=== PATIENT | female | born 1955 | race Caucasian/White ===

== ENCOUNTER 2024-07-15 13:00 | Observation (INO) | payer SELFPAY ==
[2024-07-15] MEDS ORDERED: DUONEB 0.5-3 MG/3 ml Neb IH ONE (13:43)
[2024-07-15] MEDS: DUONEB 0.5-3 MG/3 ml Neb IH ONE (13:47)
--- NOTE | 2024-07-15 14:08 | ERPHSYRPT ---
- History of Present Illness Time Seen by Provider: 07/15/24 13:15 Source: patient Exam Limitations: no limitations Patient Subjective Stated Complaint: C/O Cough and SOB since Sunday that is becoming worse. Denies fever. States cough was dry and non-productive until today. Now it is productive with yellow sputum. Triage Nursing Assessment: Patient went to [facility] and was directed to the ER. She is alert and oriented. Patient is noted to be SOB with exertion. She has a moist cough; non-productive during assessment. Taking deep breaths causes an increase in coughing. 02 sats 89-90% on room air upon her arrival; started on 02 @ 2L per N/C. Expiratory rhochi present throughout all lung reynoso. No edema. Physician History: Patient is a 68-year-old female current smoker presents to our emergency department as a referral from [facility] For evaluation of cough and shortness of breath x 4 days. Upon arrival to our ED patient's O2 sat was 89 to 90% on room air. Patient normally does not require oxygen. Patient currently on 2 L nasal cannula. Patient states symptoms of gotten progressively worse over the past 4 days. Cough is productive of a yellow sputum. Patient voices no other complaints or concerns at this time. Portions of this note were created with voice recognition technology. There may be grammatical, spelling, punctuation or sound alike errors Timing/Duration: day(s) Activities at Onset: activity (4 days) Severity of Dyspnea-Max: moderate Severity of Dyspnea-Current: mild Possible Cause: no prior episodes Modifying Factors: Improves With: activity Associated Symptoms: cough Allergies/Adverse Reactions: No Known Drug Allergies Allergy (Verified 07/15/24 13:09) Home Medications: No Reportable Medications [No Reported Medications] 07/15/24 [History] Hx Tetanus, Diphtheria Vaccination/Date Given: Yes Hx Influenza Vaccination/Date Given: No Immunizations Up to Date: Yes Travel Risk - International Travel Have you traveled outside of the country in past 3 weeks: No - Emerging Infectious Disease Are you exhibiting symptoms associated with any current EIDs: Yes Symptoms: Cough: New Onset, Shortness of Breath - Review of Systems Constitutional: No Symptoms, No Fever, No Chills Eyes: No Symptoms Ears, Nose, & Throat: No Symptoms Respiratory: No Symptoms, No Cough, No Dyspnea Cardiac: No Symptoms, No Chest Pain, No Edema, No Syncope Abdominal/Gastrointestinal: No Symptoms, No Abdominal Pain, No Nausea, No Vomiting, No Diarrhea Genitourinary Symptoms: No Symptoms, No Dysuria Musculoskeletal: No Symptoms, No Back Pain, No Neck Pain Skin: No Symptoms, No Rash Neurological: No Symptoms, No Dizziness, No Focal Weakness, No Sensory Changes Psychological: No Symptoms Endocrine: No Symptoms Hematologic/Lymphatic: No Symptoms Immunological/Allergic: No Symptoms All Other Systems: Reviewed and Negative - Past Medical History Pertinent Past Medical History: No - Past Surgical History Past Surgical History: No - Social History Smoking Status: Current every day smoker How long have you smoked: 50 years Exposure to second hand smoke: No Drug Use: none - Social Determinants of Health Will the patient participate in the screening: Yes Do you worry about a steady place to live?: No Do you have any problems with any of the following?: No known problems In the past 12 months,have you had to go without utilities?: No Transportation Issues: No Has anyone in your support network made you feel unsafe?: No Have you or anyone in your house had to go w/o enough food: No - Nursing Vital Signs Nursing Vital Signs: Initial Vital Signs Pulse Rate 91 H 07/15/24 13:09 Respiratory Rate 18 07/15/24 13:09 Blood Pressure 220/135 07/15/24 13:09 O2 Sat by Pulse Oximetry 96 07/15/24 13:09 Pain Scale Pain Intensity 0 - Physical Exam General Appearance: no apparent distress, alert Eye Exam: PERRL/EOMI Ears, Nose, Throat Exam: hearing grossly normal, normal ENT inspection, normal pharynx Neck Exam: normal inspection, supple Respiratory Exam: diminished breath sounds, rhonchi, wheezing Cardiovascular/Chest Exam: normal heart sounds, regular rate/rhythm Abdominal/Gastrointestinal Exam: soft, No tenderness, No distention, No mass Extremity Exam: non-tender, normal range of motion, normal inspection, no calf tenderness, no pedal edema Neurologic Exam: alert, oriented x 3, cooperative, health service coordinator II-XII nml as tested, sensation nml, No motor deficits Skin Exam: normal color, warm, No dry Lymphatic Exam: No adenopathy SpO2 Interpretation: normal SpO2: 98 O2 Delivery: Room Air - Course Nursing assessment & vital signs reviewed: Yes EKG Interpreted by Me: RATE (97), Sinus Rhythm, NORMAL AXIS, NORMAL INTERVALS, NORMAL QRS - Radiology Exams Chest X-ray Interpretation: Teleradiologist Report (Nonacute chest with chronic features) - CT Exams Chest CT Interpretation: Tele-radiologist Report (Emphysema, lung nodule, hepatic cyst versus hemangioma left renal cyst) Ordered Tests: Active Orders 24 hr Category Date Time Status Record Retrieval Specialist STAT Care 07/15/24 13:57 Active EKG-ER Only STAT Care 07/15/24 13:56 Active IV Insertion STAT Care 07/15/24 13:56 Active Oxygen-ED Only Nasal Cannula 2 lpm Care 07/15/24 14:22 Active Pulse Oximetry (ED) STAT Care 07/15/24 13:56 Active CHEST 1 VIEW (PORTABLE) Stat Exams 07/15/24 13:57 Completed CHEST WITH CONTRAST [CT] Stat Exams 07/15/24 15:00 Completed BLOOD CULTURE Stat Lab 07/15/24 14:26 Received CBC W DIFF Stat Lab 07/15/24 13:45 Completed CMP Stat Lab 07/15/24 13:45 Completed D-DIMER QUANTITATIVE Stat Lab 07/15/24 13:45 Completed Lactic Acid Stat Lab 07/15/24 13:56 Completed Respiratory Therapy Assessment DAILY RT 07/15/24 13:46 Completed Transfer Order Routine Transfer 07/15/24 Ordered Medication Summary Generic Name Dose Route Start Last Admin Trade Name Freq PRN Reason Stop Dose Admin Ceftriaxone Sodium 2 gm in 100 mls @ 200 mls/hr 07/15/24 17:04 Rocephin 2 Gm/100 Ml Nacl IV 07/15/24 17:33 STAT ONE Azithromycin 500 mg/ Sodium 250 mls @ 250 mls/hr 07/15/24 17:04 Chloride IV 07/15/24 18:03 STAT STA Discontinued Medications Generic Name Dose Route Start Last Admin Trade Name Freq PRN Reason Stop Dose Admin Albuterol/Ipratropium Confirm 07/15/24 13:43 Ipratropium/Albuterol Sulfate 3 Ml Ampul.Neb Administered 07/15/24 13:44 Dose 3 ml IH .STK-MED ONE Albuterol/Ipratropium 3 ml 07/15/24 13:46 07/15/24 13:47 Ipratropium/Albuterol Sulfate 3 Ml Ampul.Neb IH 07/15/24 13:47 3 ml STAT ONE Administration Methylprednisolone Sodium 0 mg 07/15/24 14:11 07/15/24 14:14 Succinate 125 mg/ Sterile IV 07/15/24 14:12 125 mg Water 2 ml STAT ONE Administration Methylprednisolone Sodium Succinate Confirm 07/15/24 14:13 Methylprednis Sod Succ 125 Mg/2 Ml Vial Administered 07/15/24 14:14 Dose 125 mg .ROUTE .STK-MED ONE Metoprolol Tartrate 25 mg 07/15/24 15:08 07/15/24 15:15 Metoprolol Tartrate 25 Mg Tab PO 07/15/24 15:09 25 mg STAT ONE Administration Metoprolol Tartrate Confirm 07/15/24 15:15 Metoprolol Tartrate 25 Mg Tab Administered 07/15/24 15:16 Dose 25 mg .ROUTE .STK-MED ONE Sterile Water Confirm 07/15/24 14:13 Water For Injection,Sterile 10 Ml Vial Administered 07/15/24 14:14 Dose 10 ml IJ .STK-MED ONE Lab/Rad Data: Laboratory Result Diagrams 07/15/24 13:45 07/15/24 13:45 Laboratory Results 07/15/24 07/15/24 07/15/24 Range/Units 14:30 13:56 13:45 WBC (3.98-10.04) x10^3/uL RBC (3.93-5.22) x10^6/uL Hgb (11.2-15.7) g/dL Hct (34.1-44.9) % MCV (79.4-94.8) fL MCH (25.6-32.2) pg MCHC (32.2-35.5) g/dL RDW (11.7-14.4) % Plt Count (182-369) x10^3/uL MPV (9.4-12.3) fL Gran % (34.0-71.1) % Immature Gran % (Auto) (0.001-0.429) % Nucleat RBC Rel Count (0.00-0.2) % Eos # (Auto) (0.04-0.36) x10^3/uL Immature Gran # (Auto) (0.001-0.031) x10^3u/L Absolute Lymphs (auto) (1.18-3.74) x10^3/uL Absolute Monos (auto) (0.24-0.86) x10^3/uL Absolute Nucleated RBC (0.00-0.012) x10^3u/L Lymphocytes % (19.3-51.7) % Monocytes % (4.7-12.5) % Eosinophils % (0.7-5.8) % Basophils % (0.1-1.2) % Absolute Granulocytes (1.56-6.13) x10^3/uL Basophils # (0.01-0.08) x10^3/uL D-Dimer 0.87 H* (0.0-0.50) mg/L Sodium (135-145) mmol/L Potassium (3.5-5.1) mmol/L Chloride (98-107) mmol/L Carbon Dioxide (22-30) mmol/L Anion Gap (5-15) MEQ/L BUN (7-17) mg/dL Creatinine (0.52-1.04) mg/dL Estimated GFR ML/MIN Glucose (74-106) mg/dL Lactic Acid 1.2 (0.4-2.0) Calcium (8.4-10.2) mg/dL Total Bilirubin (0.2-1.3) mg/dL AST (14-36) U/L ALT (0-35) U/L Alkaline Phosphatase (38-126) U/L Serum Total Protein (6.3-8.2) g/dL Albumin (3.5-5.0) g/dL Influenza Type A Ag NEGATIVE (NEGATIVE) Influenza Type B Ag NEGATIVE (NEGATIVE) RSV (PCR) NEGATIVE (NEGATIVE) SARS-CoV-2 (PCR) NEGATIVE (NEGATIVE) 07/15/24 07/15/24 Range/Units 13:45 13:45 WBC 9.8 (3.98-10.04) x10^3/uL RBC 5.10 (3.93-5.22) x10^6/uL Hgb 15.0 (11.2-15.7) g/dL Hct 45.6 H (34.1-44.9) % MCV 89.4 (79.4-94.8) fL MCH 29.4 (25.6-32.2) pg MCHC 32.9 (32.2-35.5) g/dL RDW 14.0 (11.7-14.4) % Plt Count 259 (182-369) x10^3/uL MPV 10.0 (9.4-12.3) fL Gran % 73.2 H (34.0-71.1) % Immature Gran % (Auto) 0.5 H (0.001-0.429) % Nucleat RBC Rel Count 0.0 (0.00-0.2) % Eos # (Auto) 0.12 (0.04-0.36) x10^3/uL Immature Gran # (Auto) 0.05 H (0.001-0.031) x10^3u/L Absolute Lymphs (auto) 1.83 (1.18-3.74) x10^3/uL Absolute Monos (auto) 0.57 (0.24-0.86) x10^3/uL Absolute Nucleated RBC 0.00 (0.00-0.012) x10^3u/L Lymphocytes % 18.8 L (19.3-51.7) % Monocytes % 5.8 (4.7-12.5) % Eosinophils % 1.2 (0.7-5.8) % Basophils % 0.5 (0.1-1.2) % Absolute Granulocytes 7.14 H (1.56-6.13) x10^3/uL Basophils # 0.05 (0.01-0.08) x10^3/uL D-Dimer (0.0-0.50) mg/L Sodium 141 (135-145) mmol/L Potassium 4.4 (3.5-5.1) mmol/L Chloride 105 (98-107) mmol/L Carbon Dioxide 23 (22-30) mmol/L Anion Gap 16.4 H (5-15) MEQ/L BUN 23 H (7-17) mg/dL Creatinine 0.74 (0.52-1.04) mg/dL Estimated GFR 87.5 ML/MIN Glucose 100 (74-106) mg/dL Lactic Acid (0.4-2.0) Calcium 9.4 (8.4-10.2) mg/dL Total Bilirubin 0.70 (0.2-1.3) mg/dL AST 32 (14-36) U/L ALT 17 (0-35) U/L Alkaline Phosphatase 123 (38-126) U/L Serum Total Protein 7.9 (6.3-8.2) g/dL Albumin 4.6 (3.5-5.0) g/dL Influenza Type A Ag (NEGATIVE) Influenza Type B Ag (NEGATIVE) RSV (PCR) (NEGATIVE) SARS-CoV-2 (PCR) (NEGATIVE) - Progress Progress: improved Air Movement: good Progress Note: Patient accepted by hospitalist Dr. Lyon at 5:10pm 07/15/24 17:11 68-year-old female 1 pack/day smoker with no primary care follow-up presents to our ED for evaluation of shortness of breath. Patient was hypoxic upon arrival. D-dimer positive. CTA chest significant for emphysema. No PE. Patient received a breathing treatment Solu-Medrol antibiotics. Breathing significantly improved however patient still hypoxic on room air. Troponin negative. Lactic acid 1.2. Influenza RSV COVID-negative. Upon arrival to our ED patient's blood pressure was 200 systolic. We administered 25 mg metoprolol. Blood pressure improved to 185 systolic. Patient will require hospitalization for further evaluation and treatment. Plan of care discussed with patient. She agreed to admission to [facility] for further evaluation and treatment. Portions of this note were created with voice recognition technology. There may be grammatical, spelling, punctuation or sound alike errors Complexity of problem addressed is moderate acute complicated. No critical care time. Complex of data reviewed analyzes extensive. Test ordered test reviewed results analyzed and correlated clinically with history and physical exam. Risk of complication and or risk of morbidity/mortality of patient management is high. Patient requires hospitalization for further evaluation and treatment. Vital stable. Time spent admit patient approximately 15 minutes. Plan of care established for shared decision making. No social determinants of health present to impede follow-up. Portions of this note were created with voice recognition technology. There may be grammatical, spelling, punctuation or sound alike errors 07/15/24 17:25 Blood Culture(s) Obtained: Yes Antibiotics given: Yes Discussed with : Diana Counseled pt/family regarding: lab results, diagnosis - Departure Departure Disposition: Observation Clinical Impression: Hypoxia, Shortness of breath, Emphysema lung, Lung nodule, Hepatic cyst, Renal cyst, left, COPD exacerbation, Hypertension Condition: Stable Critical Care Time: No Referrals: GAIL GONZALEZ MD [Primary Care Provider, [facility]] - Follow up/PCP as directed Instructions: Chronic Obstructive Pulmonary Disease
[2024-07-15] MEDS ORDERED: solu-MEDROL ONE ×2 (14:13→21:35)
[2024-07-15] MEDS ORDERED: Sterile H2O 10 ml IJ ONE ×2 (14:13→21:36)
[2024-07-15] MEDS: solu-MEDROL 125 MG, Sterile H2O 10 ml 2 ML IV ONE (14:14)
[2024-07-15 14:16] LABS: Absolute Neutrophil Ct (ANC) 7.14 x10^3/uL (1.56-6.13); BASOPHIL % 0.5 % (0.1-1.2); Basophil (Absolute #) 0.05 x10^3/uL (0.01-0.08); Eosinophil % 1.2 % (0.7-5.8); Eosinophil (Absolute #) 0.12 x10^3/uL (0.04-0.36); Hematocrit 45.6 % (34.1-44.9); IMMATURE GRAN # 0.05 x10^3u/L (0.001-0.031); IMMATURE GRAN % 0.5 % (0.001-0.429); Lymphocyte (Absolute #) 1.83 x10^3/uL (1.18-3.74); Lymphocytes % 18.8 % (19.3-51.7); Mean Cell Volume 89.4 fL (79.4-94.8); Mean Corpuscular Hemoglobin 29.4 pg (25.6-32.2); Mean Corpuscular Hgb Concent. 32.9 g/dL (32.2-35.5); Monocyte (Absolute #) 0.57 x10^3/uL (0.24-0.86); Monocytes % 5.8 % (4.7-12.5); Neutrophil % 73.2 % (34.0-71.1); Platelet Count 259 x10^3/uL (182-369); White Blood Count 9.8 x10^3/uL (3.98-10.04)
--- NOTE | 2024-07-15 14:19 | XRAY ---
Indication: Short of breath. Comparison: May 05, 2019 Portable chest again hyperinflated with minimal bibasilar fibrosis/scarring. No focal infiltrate, consolidation, or large effusion. Heart not enlarged. Bony thorax intact again with osteopenia and minimal degenerative changes. Impression: Continued nonacute chest with chronic features.
[2024-07-15 14:32] LABS: ALBUMIN 4.6 g/dL (3.5-5.0); ANION GAP 16.4 MEQ/L (5-15); BILIRUBIN,TOTAL 0.7 mg/dL (0.2-1.3); Calcium 9.4 mg/dL (8.4-10.2); Creatinine 1 0.74 mg/dL (0.52-1.04); EST GLOMERULAR FILTRATION RATE 87.5 ML/MIN; Potassium 4.4 mmol/L (3.5-5.1); Total Protein 7.9 g/dL (6.3-8.2)
[2024-07-15 15:08] LABS: INFLUENZA A NEGATIVE (NEGATIVE); INFLUENZA B NEGATIVE (NEGATIVE); RESPIRATORY SYNCTIAL VIRUS NEGATIVE (NEGATIVE); SARS-CoV-2 Xpert Express NEGATIVE (NEGATIVE)
[2024-07-15] MEDS: Lopressor 25MG Tab PO ONE (15:15)
[2024-07-15] MEDS ORDERED: Lopressor 25MG Tab ONE (15:15)
--- NOTE | 2024-07-15 16:52 | XRAY ---
Indication: Short of breath. Positive d-dimer. Multiple contiguous axial images obtained through the chest using 80 cc Isovue 370 contrast and PE protocol. Comparison: None Good opacification pulmonary arteries to include the lobar and segmental branches. No pulmonary embolus. Heart not enlarged. Aorta demonstrates minimal scattered calcifications without aneurysm/dissection. No pathologic mediastinal/hilar lymphadenopathy. Lungs demonstrates pulmonary emphysema. Left upper lobe demonstrates 7 mm indeterminate noncalcified nodule. No infiltrate or effusion. Bony thorax intact with osteopenia. Limited upper abdomen demonstrates 5 mm hepatic cyst versus hemangioma. Also 1 cm left upper renal cyst. Impression: 1. Negative pulmonary embolus. No acute cardiopulmonary abnormalities. 2. Chronic findings including pulmonary emphysema, 7 mm indeterminate left upper lobe noncalcified nodule, osteopenia, tiny hepatic cyst/hemangioma, and small left renal cyst.
[2024-07-15] MEDS ORDERED: ROCEPHIN 2 GM/100 ML NACL 2 GM/100 ML IVPB IV ONE (17:26)
[2024-07-15] MEDS: ROCEPHIN 2 GM/100 ML NACL 2 GM/100 ML IVPB IV ONE (17:28)
[2024-07-15] MEDS: ZITHROMAX IV*** 500 MG in Sodium Chloride 0.9% 250 ML 250 ML IV STA (18:51)
[2024-07-15] MEDS ORDERED: Zofran 4 MG/2 ML VIAL IV PRN (21:03)
[2024-07-15] MEDS ORDERED: Docusate Sodium 100 MG PO PRN (21:03)
--- NOTE | 2024-07-15 21:13 | PCM.HP ---
History of Present Illness - Chief Complaint Chief Complaint: COPD exacerbation, hypoxia Date: 07/15/24 History of Present Illness: is a 68 year old female with a history of tobacco use but no history of COPD who presented to the emergency department as a referral from [facility] for evaluation of cough, wheezing, and shortness of breath for 4 days. Upon arrival to the ED patient's O2 saturation was 89 to 90% on room air. Patient states symptoms of gotten progressively worse over the past 4 days. Cough is productive of a yellow sputum but there is no report of hemoptysis. No chest pain is reported. At the time of my evaluation, the patient's dyspnea had improved. - Review of Systems Constitutional: No Symptoms Eyes: No Symptoms Ears, Nose, & Throat: No Symptoms Respiratory: Cough, Short Of Breath, Wheezing Cardiac: No Symptoms Abdominal/Gastrointestinal: No Symptoms Genitourinary Symptoms: No Symptoms Musculoskeletal: No Symptoms Skin: No Symptoms Neurological: No Symptoms Psychological: No Symptoms Endocrine: No Symptoms Hematologic/Lymphatic: No Symptoms Immunological/Allergic: No Symptoms All Other Systems: Reviewed and Negative Medications & Allergies Home Medications: Home Medication List No Reportable Medications [No Reported Medications] 07/15/24 [History Confirmed 07/15/24] Allergies/Adverse Reactions: Allergies Allergy/AdvReac Type Severity Reaction Status Date / Time No Known Drug Allergies Allergy Verified 07/15/24 13:09 - Past Medical History Past Medical History: No Neurological History: No Pertinent History ENT History: No Pertinent History Cardiac History: No Pertinent History Respiratory History: No Pertinent History Endocrine Medical History: No Pertinent History Musculoskelatal History: No Pertinent History GI Medical History: No Pertinent History History: No Pertinent History Pyscho-Social History: No Pertinent History Reproductive Disorders: No Pertinent History - Past Surgical History Past Surgical History: No Significant Family History: no pertinent family hx - Social History Smoking Status: Current every day smoker How long have you smoked: 50 years Exposure to second hand smoke: No Alcohol: None Drug Use: none - Social Determinants of Health Will the patient participate in the screening: Yes Do you worry about a steady place to live?: No Do you have any problems with any of the following?: No known problems In the past 12 months,have you had to go without utilities?: No Have you or anyone in your house had to go without enough: No Transportation Issues: No Has anyone in your support network made you feel unsafe?: No Does the patient want assistance with any of the above?: No - Physical Exam Vital Signs: Vital Signs - 24 hr Temp Pulse Resp BP BP Pulse Ox 07/15/24 19:40 97.2 F 81 18 144/66 2 L 07/15/24 18:41 98.6 F 73 18 205/98 92 L 07/15/24 18:01 95 07/15/24 17:30 171/96 07/15/24 17:28 98 07/15/24 17:00 70 23 175/108 94 L 07/15/24 16:30 73 21 201/101 96 07/15/24 16:00 79 25 H 185/104 98 07/15/24 15:51 75 28 H 199/95 97 07/15/24 15:00 84 22 200/102 96 07/15/24 14:30 87 18 201/140 96 07/15/24 14:00 84 28 H 188/120 07/15/24 13:48 97 H 19 98 07/15/24 13:30 91 H 22 180/118 95 07/15/24 13:10 97.8 F 92 H 25 H 220/135 96 07/15/24 13:09 91 H 18 220/135 96 General Appearance: no apparent distress, alert Neurologic Exam: alert, oriented x 3, cooperative, preparer II-XII nml as tested, normal mood/affect, nml cerebellar function Eye Exam: PERRL/EOMI, eyes nml inspection Ears, Nose, Throat Exam: normal ENT inspection Neck Exam: normal inspection, non-tender, supple, full range of motion, meningismus Respiratory Exam: airway intact, diminished breath sounds, wheezing Cardiovascular Exam: regular rate/rhythm, normal heart sounds Gastrointestinal/Abdomen Exam: soft, normal bowel sounds Back Exam: normal range of motion Extremity Exam: normal inspection, normal range of motion Skin Exam: normal color Results - Labs Lab/Micro Results: Lab Results-Last 24 Hours 07/15/24 07/15/24 07/15/24 Range/Units 13:45 13:45 13:45 WBC 9.8 (3.98-10.04) x10^3/uL RBC 5.10 (3.93-5.22) x10^6/uL Hgb 15.0 (11.2-15.7) g/dL Hct 45.6 H (34.1-44.9) % MCV 89.4 (79.4-94.8) fL MCH 29.4 (25.6-32.2) pg MCHC 32.9 (32.2-35.5) g/dL RDW 14.0 (11.7-14.4) % Plt Count 259 (182-369) x10^3/uL MPV 10.0 (9.4-12.3) fL Gran % 73.2 H (34.0-71.1) % Immature Gran % (Auto) 0.5 H (0.001-0.429) % Nucleat RBC Rel Count 0.0 (0.00-0.2) % Eos # (Auto) 0.12 (0.04-0.36) x10^3/uL Immature Gran # (Auto) 0.05 H (0.001-0.031) x10^3u/L Absolute Lymphs (auto) 1.83 (1.18-3.74) x10^3/uL Absolute Monos (auto) 0.57 (0.24-0.86) x10^3/uL Absolute Nucleated RBC 0.00 (0.00-0.012) x10^3u/L Lymphocytes % 18.8 L (19.3-51.7) % Monocytes % 5.8 (4.7-12.5) % Eosinophils % 1.2 (0.7-5.8) % Basophils % 0.5 (0.1-1.2) % Absolute Granulocytes 7.14 H (1.56-6.13) x10^3/uL Basophils # 0.05 (0.01-0.08) x10^3/uL D-Dimer 0.87 H* (0.0-0.50) mg/L Sodium 141 (135-145) mmol/L Potassium 4.4 (3.5-5.1) mmol/L Chloride 105 (98-107) mmol/L Carbon Dioxide 23 (22-30) mmol/L Anion Gap 16.4 H (5-15) MEQ/L BUN 23 H (7-17) mg/dL Creatinine 0.74 (0.52-1.04) mg/dL Estimated GFR 87.5 ML/MIN Glucose 100 (74-106) mg/dL Lactic Acid (0.4-2.0) Calcium 9.4 (8.4-10.2) mg/dL Total Bilirubin 0.70 (0.2-1.3) mg/dL AST 32 (14-36) U/L ALT 17 (0-35) U/L Alkaline Phosphatase 123 (38-126) U/L Serum Total Protein 7.9 (6.3-8.2) g/dL Albumin 4.6 (3.5-5.0) g/dL Influenza Type A Ag (NEGATIVE) Influenza Type B Ag (NEGATIVE) RSV (PCR) (NEGATIVE) SARS-CoV-2 (PCR) (NEGATIVE) 07/15/24 07/15/24 Range/Units 13:56 14:30 WBC (3.98-10.04) x10^3/uL RBC (3.93-5.22) x10^6/uL Hgb (11.2-15.7) g/dL Hct (34.1-44.9) % MCV (79.4-94.8) fL MCH (25.6-32.2) pg MCHC (32.2-35.5) g/dL RDW (11.7-14.4) % Plt Count (182-369) x10^3/uL MPV (9.4-12.3) fL Gran % (34.0-71.1) % Immature Gran % (Auto) (0.001-0.429) % Nucleat RBC Rel Count (0.00-0.2) % Eos # (Auto) (0.04-0.36) x10^3/uL Immature Gran # (Auto) (0.001-0.031) x10^3u/L Absolute Lymphs (auto) (1.18-3.74) x10^3/uL Absolute Monos (auto) (0.24-0.86) x10^3/uL Absolute Nucleated RBC (0.00-0.012) x10^3u/L Lymphocytes % (19.3-51.7) % Monocytes % (4.7-12.5) % Eosinophils % (0.7-5.8) % Basophils % (0.1-1.2) % Absolute Granulocytes (1.56-6.13) x10^3/uL Basophils # (0.01-0.08) x10^3/uL D-Dimer (0.0-0.50) mg/L Sodium (135-145) mmol/L Potassium (3.5-5.1) mmol/L Chloride (98-107) mmol/L Carbon Dioxide (22-30) mmol/L Anion Gap (5-15) MEQ/L BUN (7-17) mg/dL Creatinine (0.52-1.04) mg/dL Estimated GFR ML/MIN Glucose (74-106) mg/dL Lactic Acid 1.2 (0.4-2.0) Calcium (8.4-10.2) mg/dL Total Bilirubin (0.2-1.3) mg/dL AST (14-36) U/L ALT (0-35) U/L Alkaline Phosphatase (38-126) U/L Serum Total Protein (6.3-8.2) g/dL Albumin (3.5-5.0) g/dL Influenza Type A Ag NEGATIVE (NEGATIVE) Influenza Type B Ag NEGATIVE (NEGATIVE) RSV (PCR) NEGATIVE (NEGATIVE) SARS-CoV-2 (PCR) NEGATIVE (NEGATIVE) - Radiology Impressions Radiology Exams & Impressions: Radiology Procedures Category Date Time Status CHEST 1 VIEW (PORTABLE) Stat Exams 07/15/24 13:57 Completed CHEST WITH CONTRAST [CT] Stat Exams 07/15/24 15:00 Completed - Other Procedures and Tests Respiratory Therapy 07/15/24 21:03 Respiratory Therapy Consult ONCE 07/16/24 08:00 Oxygen Nasal Cannula 2 lpm Assessment/Plan (1) COPD exacerbation Current Visit: Yes Status: Acute Assessment & Plan: Steroids, nebs, antibiotics for possible acute bronchitis. Wean O2 as tolerated. Mucinex. Code(s): J44.1 - CHRONIC OBSTRUCTIVE PULMONARY DISEASE W (ACUTE) EXACERBATION (2) Hypoxia Current Visit: Yes Status: Acute Assessment & Plan: Wean O2 as tolerated. Ambulatory O2 assessment before discharge. Code(s): R09.02 - HYPOXEMIA (3) Emphysema lung Current Visit: Yes Status: Acute Assessment & Plan: Noted on imaging. Will need referral for PFTs in 4 weeks after full recovery. Code(s): J43.9 - EMPHYSEMA, UNSPECIFIED (4) Lung nodule Current Visit: Yes Status: Acute Assessment & Plan: Will need outpatient surveillance. Reported verbally to patient. Code(s): R91.1 - SOLITARY PULMONARY NODULE (5) Hypertension Current Visit: Yes Status: Acute Assessment & Plan: BP noted to be markedly elevated. Placed patient on labetalol but may require titration or alternative medication at discharge. Code(s): I10 - ESSENTIAL (PRIMARY) HYPERTENSION Telemedicine Encounter - Telemedicine Encounter Telemedicine Encounter: "The entirety of this encounter was performed via Telemedicine" This visit was performed using real-time audio and video connection between my location and thepatients locationwith the assistance of a surrogateat the patients location. Written or verbal consent was obtained from the patient/guardian to perform this visit usingsynchrBaila Gamestelemedicine technology. Any patient questions regarding the telemedicine interaction were answered. Please note that this admission required 44 minutes to complete.
[2024-07-15] MEDS: Sodium Chloride 0.9% 1000 ML 1,000 ML IV SCH (21:40)
[2024-07-15] MEDS: Mucinex 600MG ER Tabs PO SCH (21:40)
[2024-07-15] MEDS: Trandate 100 MG PO SCH (21:40)
[2024-07-15] MEDS: Pepcid 20 MG PO SCH (21:40)
[2024-07-15] MEDS: solu-MEDROL 40 MG, Sterile H2O 10 ml 1 ML IV SCH (21:41)
[2024-07-16] MEDS: DUONEB 0.5-3 MG/3 ml Neb IH SCH (01:20)
[2024-07-16 05:39] LABS: Absolute Neutrophil Ct (ANC) 5.51 x10^3/uL (1.56-6.13); BASOPHIL % 0.2 % (0.1-1.2); Basophil (Absolute #) 0.01 x10^3/uL (0.01-0.08); Eosinophil (Absolute #) 0 x10^3/uL (0.04-0.36); Hematocrit 42.8 % (34.1-44.9); Hemoglobin 13.7 g/dL (11.2-15.7); IMMATURE GRAN # 0.04 x10^3u/L (0.001-0.031); IMMATURE GRAN % 0.6 % (0.001-0.429); Lymphocyte (Absolute #) 0.92 x10^3/uL (1.18-3.74); Lymphocytes % 13.9 % (19.3-51.7); Mean Cell Volume 91.6 fL (79.4-94.8); Mean Corpuscular Hemoglobin 29.3 pg (25.6-32.2); Mean Platelet Volume 9.2 fL (9.4-12.3); Monocyte (Absolute #) 0.12 x10^3/uL (0.24-0.86); Monocytes % 1.8 % (4.7-12.5); Neutrophil % 83.5 % (34.0-71.1); Platelet Count 248 x10^3/uL (182-369); Red Blood Count 4.67 x10^6/uL (3.93-5.22); Red Cell Distribution Width 14.2 % (11.7-14.4); White Blood Count 6.6 x10^3/uL (3.98-10.04)
[2024-07-16 05:55] LABS: ANION GAP 17.2 MEQ/L (5-15); Calcium 9.3 mg/dL (8.4-10.2); Creatinine 1 0.82 mg/dL (0.52-1.04); EST GLOMERULAR FILTRATION RATE 77.4 ML/MIN; Potassium 4.4 mmol/L (3.5-5.1)
[2024-07-16] MEDS ORDERED: solu-MEDROL ONE (06:19)
[2024-07-16] MEDS ORDERED: Sterile H2O 10 ml IJ ONE (06:19)
[2024-07-16] MEDS: ROCEPHIN 1 GM / 100 ML NaCl 1 GM/100 ML IVPB IV SCH (10:10)
[2024-07-16] MEDS: NORVASC 5 MG PO ONE (10:10)
[2024-07-16] MEDS: Acidophilus TABLET PO SCH (10:10)
[2024-07-16] MEDS: ENOXAPARIN SODIUM SQ SCH (10:11)
[2024-07-16] MEDS: TYLENOL 325 MG PO PRN (10:12)
[2024-07-16] MEDS: ATARAX 25 MG PO ONE (11:30)
[2024-07-16] MEDS: Nicoderm CQ 21 MG TOP ONE (11:31)
[2024-07-16] MEDS: ZITHROMAX IV*** 500 MG in Sodium Chloride 0.9% 250 ML 250 ML IV SCH (11:33)
--- NOTE | 2024-07-16 12:52 | PCM.DS ---
Discharge Summary Date of Admission: 07/15/24 17:50 Date of Discharge: 07/16/24 Admitting Physician: KIM CLEARY MD Primary Care Provider: GAIL GONZALEZ Allergies Allergies No Known Drug Allergies Allergy (Verified 07/15/24 13:09) Hospital Summary - Hospital Course Hospital Course: 07/16/24 is a 68 year old female with a history of tobacco use but no history of COPD. She presented to the emergency department on 07/15/24 as a referral from [facility] for evaluation of cough, wheezing, and shortness of breath for 4 days. Upon arrival to the ED patient's O2 saturation was 89 to 90% on room air. Patient states symptoms of gotten progressively worse over the past 4 days. Cough has been productive of a yellow sputum but there is no report of hemoptysis. Today she is feeling munch better and on Room air 94%. BP remains elevated and amlodipine started. She reports she is very anxous and anxiety medication provided as well. Discussed CT findings and theta she will need to f/u OP with Pulm. She is agreeable. Also discussed smoking cessation and this is what cause her to have anxiety. She states she enjoys smoking 1 ppd and has done so for over 50 yrs. She would like to f/u with Dr. Pham OP. If bp better controlled she may d/c this afternoon. She denies CP, SOB, Abd pain, N/V/D. She does have some nystagmus that improves when she placed her glasses on. She states she had had this her entire life but feels it may be worse. She has no neurological deficits. Will need OP f/u with PCP and instructional design specialist. - Vitals & Intake/Output Vital Signs: Vital Signs Temperature 98.8 F 07/16/24 12:00 Pulse Rate 95 H 07/16/24 12:00 Respiratory Rate 24 07/16/24 12:00 Blood Pressure 197/89 07/16/24 08:00 O2 Sat by Pulse Oximetry 93 L 07/16/24 12:00 Intake & Output: Intake & Output 07/14/24 07/15/24 07/16/24 07/17/24 11:59 11:59 11:59 11:59 Intake Total 616 60 Balance 616 60 Weight 69.5 kg - Lab Result Diagrams: 07/16/24 05:21 07/16/24 05:21 Lab Results-Last 24 Hrs: Lab Results-Last 24 Hours 07/15/24 07/15/24 07/15/24 Range/Units 13:45 13:45 13:45 WBC 9.8 (3.98-10.04) x10^3/uL RBC 5.10 (3.93-5.22) x10^6/uL Hgb 15.0 (11.2-15.7) g/dL Hct 45.6 H (34.1-44.9) % MCV 89.4 (79.4-94.8) fL MCH 29.4 (25.6-32.2) pg MCHC 32.9 (32.2-35.5) g/dL RDW 14.0 (11.7-14.4) % Plt Count 259 (182-369) x10^3/uL MPV 10.0 (9.4-12.3) fL Gran % 73.2 H (34.0-71.1) % Immature Gran % (Auto) 0.5 H (0.001-0.429) % Nucleat RBC Rel Count 0.0 (0.00-0.2) % Eos # (Auto) 0.12 (0.04-0.36) x10^3/uL Immature Gran # (Auto) 0.05 H (0.001-0.031) x10^3u/L Absolute Lymphs (auto) 1.83 (1.18-3.74) x10^3/uL Absolute Monos (auto) 0.57 (0.24-0.86) x10^3/uL Absolute Nucleated RBC 0.00 (0.00-0.012) x10^3u/L Lymphocytes % 18.8 L (19.3-51.7) % Monocytes % 5.8 (4.7-12.5) % Eosinophils % 1.2 (0.7-5.8) % Basophils % 0.5 (0.1-1.2) % Absolute Granulocytes 7.14 H (1.56-6.13) x10^3/uL Basophils # 0.05 (0.01-0.08) x10^3/uL D-Dimer 0.87 H* (0.0-0.50) mg/L Sodium 141 (135-145) mmol/L Potassium 4.4 (3.5-5.1) mmol/L Chloride 105 (98-107) mmol/L Carbon Dioxide 23 (22-30) mmol/L Anion Gap 16.4 H (5-15) MEQ/L BUN 23 H (7-17) mg/dL Creatinine 0.74 (0.52-1.04) mg/dL Estimated GFR 87.5 ML/MIN Glucose 100 (74-106) mg/dL Lactic Acid (0.4-2.0) Calcium 9.4 (8.4-10.2) mg/dL Total Bilirubin 0.70 (0.2-1.3) mg/dL AST 32 (14-36) U/L ALT 17 (0-35) U/L Alkaline Phosphatase 123 (38-126) U/L Serum Total Protein 7.9 (6.3-8.2) g/dL Albumin 4.6 (3.5-5.0) g/dL Influenza Type A Ag (NEGATIVE) Influenza Type B Ag (NEGATIVE) RSV (PCR) (NEGATIVE) SARS-CoV-2 (PCR) (NEGATIVE) 07/15/24 07/15/24 07/16/24 Range/Units 13:56 14:30 05:21 WBC 6.6 (3.98-10.04) x10^3/uL RBC 4.67 (3.93-5.22) x10^6/uL Hgb 13.7 (11.2-15.7) g/dL Hct 42.8 (34.1-44.9) % MCV 91.6 (79.4-94.8) fL MCH 29.3 (25.6-32.2) pg MCHC 32.0 L (32.2-35.5) g/dL RDW 14.2 (11.7-14.4) % Plt Count 248 (182-369) x10^3/uL MPV 9.2 L (9.4-12.3) fL Gran % 83.5 H (34.0-71.1) % Immature Gran % (Auto) 0.6 H (0.001-0.429) % Nucleat RBC Rel Count 0.0 (0.00-0.2) % Eos # (Auto) 0 L (0.04-0.36) x10^3/uL Immature Gran # (Auto) 0.04 H (0.001-0.031) x10^3u/L Absolute Lymphs (auto) 0.92 L (1.18-3.74) x10^3/uL Absolute Monos (auto) 0.12 L (0.24-0.86) x10^3/uL Absolute Nucleated RBC 0.00 (0.00-0.012) x10^3u/L Lymphocytes % 13.9 L (19.3-51.7) % Monocytes % 1.8 L (4.7-12.5) % Eosinophils % 0.0 L (0.7-5.8) % Basophils % 0.2 (0.1-1.2) % Absolute Granulocytes 5.51 (1.56-6.13) x10^3/uL Basophils # 0.01 (0.01-0.08) x10^3/uL D-Dimer (0.0-0.50) mg/L Sodium (135-145) mmol/L Potassium (3.5-5.1) mmol/L Chloride (98-107) mmol/L Carbon Dioxide (22-30) mmol/L Anion Gap (5-15) MEQ/L BUN (7-17) mg/dL Creatinine (0.52-1.04) mg/dL Estimated GFR ML/MIN Glucose (74-106) mg/dL Lactic Acid 1.2 (0.4-2.0) Calcium (8.4-10.2) mg/dL Total Bilirubin (0.2-1.3) mg/dL AST (14-36) U/L ALT (0-35) U/L Alkaline Phosphatase (38-126) U/L Serum Total Protein (6.3-8.2) g/dL Albumin (3.5-5.0) g/dL Influenza Type A Ag NEGATIVE (NEGATIVE) Influenza Type B Ag NEGATIVE (NEGATIVE) RSV (PCR) NEGATIVE (NEGATIVE) SARS-CoV-2 (PCR) NEGATIVE (NEGATIVE) 07/16/24 Range/Units 05:21 WBC (3.98-10.04) x10^3/uL RBC (3.93-5.22) x10^6/uL Hgb (11.2-15.7) g/dL Hct (34.1-44.9) % MCV (79.4-94.8) fL MCH (25.6-32.2) pg MCHC (32.2-35.5) g/dL RDW (11.7-14.4) % Plt Count (182-369) x10^3/uL MPV (9.4-12.3) fL Gran % (34.0-71.1) % Immature Gran % (Auto) (0.001-0.429) % Nucleat RBC Rel Count (0.00-0.2) % Eos # (Auto) (0.04-0.36) x10^3/uL Immature Gran # (Auto) (0.001-0.031) x10^3u/L Absolute Lymphs (auto) (1.18-3.74) x10^3/uL Absolute Monos (auto) (0.24-0.86) x10^3/uL Absolute Nucleated RBC (0.00-0.012) x10^3u/L Lymphocytes % (19.3-51.7) % Monocytes % (4.7-12.5) % Eosinophils % (0.7-5.8) % Basophils % (0.1-1.2) % Absolute Granulocytes (1.56-6.13) x10^3/uL Basophils # (0.01-0.08) x10^3/uL D-Dimer (0.0-0.50) mg/L Sodium 142 (135-145) mmol/L Potassium 4.4 (3.5-5.1) mmol/L Chloride 107 (98-107) mmol/L Carbon Dioxide 22 (22-30) mmol/L Anion Gap 17.2 H (5-15) MEQ/L BUN 25 H (7-17) mg/dL Creatinine 0.82 (0.52-1.04) mg/dL Estimated GFR 77.4 ML/MIN Glucose 157 H (74-106) mg/dL Lactic Acid (0.4-2.0) Calcium 9.3 (8.4-10.2) mg/dL Total Bilirubin (0.2-1.3) mg/dL AST (14-36) U/L ALT (0-35) U/L Alkaline Phosphatase (38-126) U/L Serum Total Protein (6.3-8.2) g/dL Albumin (3.5-5.0) g/dL Influenza Type A Ag (NEGATIVE) Influenza Type B Ag (NEGATIVE) RSV (PCR) (NEGATIVE) SARS-CoV-2 (PCR) (NEGATIVE) - Radiology Exams Ordered Rad Exams-Entire Visit: Radiology Procedures Category Date Time Status CHEST 1 VIEW (PORTABLE) Stat Exams 07/15/24 13:57 Completed CHEST WITH CONTRAST [CT] Stat Exams 07/15/24 15:00 Completed - Procedures and Test Procedures and Tests throughout Hospitalization: Therapy Orders & Screens 07/15/24 13:46 Respiratory Therapy Assessment DAILY Comment: 07/15/24 18:50 Smoking Cessation Education ONCE Comment: Diagnosis: COPD exacerbation, hypoxia Smoking Status: Current every day smoker How long have you smoked: 50 years Approximately how many cigarettes per day: 1 PPD Do you dip or chew tobacco: No 07/15/24 21:03 Respiratory Therapy Consult ONCE Comment: Reason For Exam: Diagnosis: COPD exacerbation, hypoxia 07/16/24 08:00 Oxygen Nasal Cannula 2 lpm Comment: Diagnosis: COPD exacerbation, hypoxia Discharge Exam General Appearance: no apparent distress, alert Neurologic Exam: alert, oriented x 3, cooperative, normal mood/affect, nml cerebellar function, sensation nml, No motor deficits Eye Exam: PERRL, EOMI, eyes nml inspection, other (+ nystagmus) Ears, Nose, Throat Exam: normal ENT inspection, pharynx normal, moist mucous membranes Neck Exam: normal inspection, non-tender, supple, full range of motion Respiratory Exam: normal breath sounds, lungs clear, No respiratory distress Cardiovascular Exam: regular rate/rhythm, normal heart sounds Gastrointestinal/Abdomen Exam: soft, No tenderness, No mass Pelvic Exam: deferred Rectal Exam: deferred Back Exam: normal inspection, normal range of motion, No CVA tenderness, No vertebral tenderness Extremity Exam: normal inspection, normal range of motion Skin Exam: normal color, warm, dry Final Diagnosis/Problem List - Final Discharge Diagnosis/Problem (1) COPD exacerbation Current Visit: Yes Status: Acute Assessment & Plan: - Steroids, nebs, antibiotics for COPD exacerbation. - Wean O2 as tolerated.- today RA 94% - Mucinex. - D-dimer 0.87- CT neagtive for PE - CT does shows 7mm SEDRICK nodule and fibrosis of BLL - CBC, CMP reviewed Code(s): J44.1 - CHRONIC OBSTRUCTIVE PULMONARY DISEASE W (ACUTE) EXACERBATION (2) Hypoxia Current Visit: Yes Status: Acute Assessment & Plan: - O2 weaned - RA 94% - Ambulatory O2 assessment before discharge. Code(s): R09.02 - HYPOXEMIA (3) Emphysema lung Current Visit: Yes Status: Acute Assessment & Plan: - As seen on CT - Smoking cessation education provided and pt agreeable to 1800 quit now program - RA 94% Code(s): J43.9 - EMPHYSEMA, UNSPECIFIED (4) Nystagmus Current Visit: Yes Status: Acute Assessment & Plan: - Pt states this is chronic and improves with wearing glasses - Vitamin B12 ordered - Pt does not have insurance. Needs OP f/u with PCP and Ophthalmology Code(s): H55.00 - UNSPECIFIED NYSTAGMUS (5) Hypertension Current Visit: Yes Status: Acute Assessment & Plan: - Amlodipine started - Uncontrolled HTN - Trend - Added Chlorthaladone daily - If BP ok this afternoon july d/c Code(s): I10 - ESSENTIAL (PRIMARY) HYPERTENSION (6) Lung nodule Current Visit: Yes Status: Acute Assessment & Plan: - Will need outpatient surveillance. Reported verbally to patient. - F/U with PULM as scheduled Code(s): R91.1 - SOLITARY PULMONARY NODULE (7) Tobacco abuse disorder Current Visit: Yes Status: Chronic Assessment & Plan: - Advised cessation - Nicotine patch Code(s): Z72.0 - TOBACCO USE (8) Anxiety Current Visit: Yes Status: Acute Assessment & Plan: - Tearful about smoking cessation - Hydroxyzine PO x1 Code(s): F41.9 - ANXIETY DISORDER, UNSPECIFIED - Discharge Discharge Date: 07/16/24 Disposition: Home, Self-Care Condition: Stable Prescriptions: New Prednisone 20 mg [Deltasone 20 mg] 20 mg PO BID 5 Days #10 tablet Doxycycline Hyclate 100 mg [Vibramycin 100 MG] 100 mg PO BID 5 Days #10 tab Chlorthalidone 25 mg PO DAILY 30 Days #30 tablet Amlodipine Besylate 5 mg [Norvasc 5 mg] 5 mg PO DAILY 30 Days #30 tablet Hydroxyzine HCl 25 mg [Atarax 25 mg] 25 mg PO BID PRN 30 Days #60 tablet Additional Instructions: A REFERRAL WAS SUBMITTED TO [id number]- THEY WILL CALL YOU TO DISCUSS SERVICES. YOU CAN ALSO REFERENCE THE CARD GIVEN TO YOU IF YOU NEED TO FOLLOW UP You can buy Mucinex over the counter if you find this helpful. Please buy a BP cuff and keep a log. Take to you PCP appointment. Follow up with: GAIL GONZALEZ MD [Primary Care Provider, [facility]ILY PRACTICE]
[2024-07-16] MEDS: CHLORTHALIDONE PO SCH (13:21)
[2024-07-16 16:56] VITALS: TEMP 99.3; O2SAT 91
[2024-07-16 17:48] VITALS: BP 177/92
[2024-07-16] MEDS ORDERED: CLONIDINE 0.1 MG TABLET ONE (18:23)
[2024-07-16] MEDS: CLONIDINE 0.1 MG TABLET PO ONE (18:25)
[2024-07-16 19:16] VITALS: PULSE 86; RESP 18
== END 2024-07-16 20:14 | disposition home or self-care (01) ==
LOC: ED 13:00 → MED SURG 17:50
PROVIDERS: ADMIT Internal Medicine; ATTEND Internal Medicine
DX: J44.1 Chronic obstructive pulmonary disease with (acute) exacerbation (principal); R09.02 Hypoxemia; J43.9 Emphysema, unspecified; H55.00 Unspecified nystagmus; I10 Essential (primary) hypertension; R91.1 Solitary pulmonary nodule; Z72.0 Tobacco use; F41.9 Anxiety disorder, unspecified
CPT/HCPCS: 0241U; 36415; 71045; 71260; 80048; 80053; 80061; 82607; 83605; 83721; 85025; 85379; 87040; 93005; 93041; 94640; 94760; 96374; 99285; Q3014; 93268; 99284; J0456; J0696; J1650; J2919; A9270-GY; G0378

== ENCOUNTER 2025-01-25 13:30 | Emergency (ER) | payer SELFPAY ==
[2025-01-25] MEDS ORDERED: Zofran 4 MG/2 ML VIAL ONE (14:19)
[2025-01-25] MEDS ORDERED: MORPHINE SULFATE 4 MG INJ ONE (14:19)
[2025-01-25] MEDS: Zofran 4 MG/2 ML VIAL IV ONE (14:21)
[2025-01-25] MEDS: MORPHINE SULFATE 4 MG INJ IV ONE (14:22)
[2025-01-25 14:50] LABS: BASOPHIL % 0.4 % (0.1-1.2); Basophil (Absolute #) 0.04 x10^3/uL (0.01-0.08); Eosinophil (Absolute #) 0.15 x10^3/uL (0.04-0.36); Hematocrit 42.7 % (34.1-44.9); Hemoglobin 13.7 g/dL (11.2-15.7); IMMATURE GRAN # 0.08 x10^3u/L (0.001-0.031); IMMATURE GRAN % 0.7 % (0.001-0.429); Lymphocyte (Absolute #) 1.91 x10^3/uL (1.18-3.74); Mean Corpuscular Hemoglobin 29.2 pg (25.6-32.2); Mean Corpuscular Hgb Concent. 32.1 g/dL (32.2-35.5); Monocyte (Absolute #) 0.93 x10^3/uL (0.24-0.86); NUCLEATED RBC # 0.00 x10^3u/L (0.00-0.012); NUCLEATED RBC % 0.0 % (0.00-0.2); Platelet Count 353 x10^3/uL (182-369); Red Blood Count 4.69 x10^6/uL (3.93-5.22); White Blood Count 10.8 x10^3/uL (3.98-10.04)
[2025-01-25 14:55] VITALS: TEMP 98.6; O2SAT 96
[2025-01-25 15:03] LABS: Calcium 9.8 mg/dL (8.4-10.2); Carbon Dioxide 20.0 mmol/L (22-30); Creatinine 1 1.13 mg/dL (0.52-1.04); EST GLOMERULAR FILTRATION RATE 52.3 ML/MIN; Glucose 96.0 mg/dL (74-106); Potassium 4.3 mmol/L (3.5-5.1)
[2025-01-25] MEDS ORDERED: Hydromorphone 1 mg/ml Injection ONE (15:10)
[2025-01-25] MEDS: Hydromorphone 1 mg/ml Injection IV ONE (15:12)
--- NOTE | 2025-01-25 15:25 | XRAY ---
CLINICAL HISTORY: flank pain COMPARISON: No prior studies are available for comparison. TECHNIQUE: Non-contrast CT of the abdomen and pelvis was performed with the following protocol: axial images and reconstructed coronal and sagittal images. No intravenous contrast was administered. One of the following dose reduction techniques was utilized for this exam: automated exposure control, adjustment of the mA and/or kV according to patient size, and use of iterative reconstruction. FINDINGS: Abdomen: Liver: The liver is normal in size, shape, and density. A small hypodense lesion in segment IV measures approximately 8 mm and is too small to be characterized. Gallbladder and Biliary System: The gallbladder is normal in size and shape. No wall thickening, pericholecystic fluid, or gallstones are identified. Pancreas: The pancreatic head, body, and tail are visualized and appear normal in size and density. No pancreatic masses or calcifications are noted. Spleen: The spleen is normal in size, shape, and density. No splenic lesions or masses are identified. Kidneys and Adrenal Glands: A tiny 3 mm obstructing stone is seen at the left vesicoureteric junction/intramural segment of the left ureter with subsequent mild upstream dilatation of the left ureter and pelvicalyceal system of the left kidney. Associated left perinephric fatty stranding is likely secondary to acute obstruction. Both kidneys are normal in size, shape, and position. Cortical thickness is within normal limits. No renal calculi or right-sided hydronephrosis are identified. The adrenal glands are unremarkable. Appendix: The appendix is normal in size, without periappendiceal fat stranding and without an appendicolith. There is no evidence of appendiceal abscess or perforation. Pelvis: Urinary Bladder: Not distended yet. No intraluminal lesions are seen. Uterus: Subvolumic and cannot be assessed. Ovaries: Not well visualized, but no gross abnormalities are noted. Peritoneal and Retroperitoneal Structures: No free fluid or abnormal fluid collections are identified within the abdomen or pelvis. No enlarged lymphadenopathy is noted. Bowel: The visualized bowel loops are normal in caliber and appearance. The descending colon shows submucosal fatty infiltration, which could represent a chronic inflammatory process. Correlate clinically. Multiple uncomplicated sigmoid diverticulosis is present. A sliding esophageal hiatus hernia is identified. Bones and Soft Tissues: The pelvic bones and soft tissues are unremarkable. No fractures or abnormal masses are identified. There is diffuse osteopenia and mild spondylosis of the lumbar spine. There are diffuse atherosclerotic changes of the aorta and both iliac arteries. IMPRESSION: 1. An obstructive 3 mm left vesicoureteric/intramural stone with subsequent left-sided mild hydroureteronephrosis. 2. A small hepatic hypodense lesion in segment IV measures approximately 8 mm and is too small to be characterized. 3. Descending colon submucosal fatty infiltration could represent a chronic inflammatory process. Correlate clinically. 4. Multiple uncomplicated sigmoid diverticulosis is present. 5. A sliding esophageal hiatus hernia is identified. Electronically Signed by: Neo Jordan MD. (01/25/2025 15:24:18 EST)
[2025-01-25 15:41] LABS: Glucose, Urine Negative (Negative); Protein,Urine Dip Trace (Negative); RBC >100 /HPF (0-5); WBC 0-2 /HPF (0-5)
--- NOTE | 2025-01-25 15:51 | ERPHSYRPT ---
- History of Present Illness Patient Subjective Stated Complaint: Pt. states, "Yesterday I started having pain in my left lower back. I also feel like i need to pee all the time but then I can't hardly go." Triage Nursing Assessment: Pt. ambulates to room without difficulty, A&Ox3, Skin P/W/D, Resp. even unlabored, guarding left lower back. Physician History: Left flank pain, onset of symptoms yesterday, patient was concerned she may have a urinary tract infection had been drinking cranberry juice, she denied history of recurrent urinary tract infections, she denied previous history of kidney stones Timing/Duration: yesterday Abdominal Pain Onset Location: flank Severity of Pain-Max: severe Severity of Pain-Current: severe Associated Symptoms: nausea Allergies/Adverse Reactions: No Known Drug Allergies Allergy (Verified 07/15/24 13:09) Hx Tetanus, Diphtheria Vaccination/Date Given: Yes Hx Influenza Vaccination/Date Given: No Travel Risk - International Travel Have you traveled outside of the country in past 3 weeks: No - Emerging Infectious Disease Are you exhibiting symptoms associated with any current EIDs: No Symptoms: Cough: New Onset, Shortness of Breath - Past Medical History Pertinent Past Medical History: No Neurological History: No Pertinent History ENT History: No Pertinent History Cardiac History: No Pertinent History Respiratory History: No Pertinent History Endocrine Medical History: No Pertinent History Musculoskeletal History: No Pertinent History GI Medical History: No Pertinent History History: No Pertinent History Psycho-Social History: No Pertinent History Female Reproductive Disorders: No Pertinent History - Past Surgical History Past Surgical History: No Significant Family History: no pertinent family hx - Social History Smoking Status: Current every day smoker How long have you smoked: 50 years Exposure to second hand smoke: No Drug Use: none - Social Determinants of Health Will the patient participate in the screening: Declined to provide - Nursing Vital Signs Nursing Vital Signs: Initial Vital Signs Temperature 98.6 F 01/25/25 13:31 Pulse Rate 90 01/25/25 13:31 Respiratory Rate 18 01/25/25 13:31 Blood Pressure 180/115 01/25/25 13:31 O2 Sat by Pulse Oximetry 96 01/25/25 13:31 Pain Scale Pain Intensity 9 - Physical Exam General Appearance: no apparent distress, alert Eye Exam: PERRL/EOMI, eyes nml inspection Ears, Nose, Throat Exam: normal ENT inspection, pharynx normal, moist mucous membranes Neck Exam: normal inspection, non-tender, supple, full range of motion Respiratory Exam: normal breath sounds, lungs clear, No respiratory distress Cardiovascular Exam: regular rate/rhythm, normal heart sounds Gastrointestinal/Abdomen Exam: soft, tenderness (Left CVA), No mass Back Exam: normal inspection, normal range of motion, No CVA tenderness, No vertebral tenderness Extremity Exam: normal inspection, normal range of motion, pelvis stable Neurologic Exam: alert, oriented x 3, cooperative, normal mood/affect, nml cerebellar function, sensation nml, No motor deficits Skin Exam: normal color, warm, dry SpO2 Interpretation: normal SpO2: 96 Ordered Tests: Active Orders 24 hr Category Date Time Status IV Insertion STAT Care 01/25/25 14:11 Active ABDOMEN AND PELVIS W/0 CONTRAS [CT] Stat Exams 01/25/25 14:11 Completed BMP Stat Lab 01/25/25 14:40 Completed CBC W DIFF Stat Lab 01/25/25 14:40 Completed CULTURE,URINE Stat Lab 01/25/25 14:06 Received UA W/RFX UR CULTURE Stat Lab 01/25/25 14:06 Completed Medication Summary Generic Name Dose Route Start Last Admin Trade Name Freq PRN Reason Stop Dose Admin Sodium Chloride 1,000 mls @ 125 mls/hr 01/25/25 15:15 01/25/25 15:18 Sodium Chloride 0.9% 1000 Ml IV 02/24/25 15:14 125 mls/hr .Q8H SHANTELLE Administration Discontinued Medications Generic Name Dose Route Start Last Admin Trade Name Freq PRN Reason Stop Dose Admin Hydromorphone HCl 0.5 mg 01/25/25 14:58 01/25/25 15:12 Hydromorphone 1 Mg/1ml Inj IV 01/25/25 14:59 0.5 mg STAT ONE Administration Hydromorphone HCl Confirm 01/25/25 15:10 Hydromorphone 1 Mg/1ml Inj Administered 01/25/25 15:11 Dose 1 mg .ROUTE .STK-MED ONE Sodium Chloride 1,000 mls @ 999 mls/hr 01/25/25 15:09 01/25/25 15:19 Sodium Chloride 0.9% 1000 Ml IV 01/25/25 16:09 Not Given .Q1H1M STA Morphine Sulfate 4 mg 01/25/25 14:11 01/25/25 14:22 Morphine Sulfate 4 Mg/Ml Injection IV 01/25/25 14:12 4 mg STAT ONE Administration Morphine Sulfate Confirm 01/25/25 14:19 Morphine Sulfate 4 Mg/Ml Injection Administered 01/25/25 14:20 Dose 4 mg .ROUTE .STK-MED ONE Ondansetron HCl 4 mg 01/25/25 14:11 01/25/25 14:21 Ondansetron Hcl 4 Mg/2 Ml Vial IV 01/25/25 14:12 4 mg STAT ONE Administration Ondansetron HCl Confirm 01/25/25 14:19 Ondansetron Hcl 4 Mg/2 Ml Vial Administered 01/25/25 14:20 Dose 4 mg .ROUTE .STK-MED ONE Lab/Rad Data: Laboratory Result Diagrams 01/25/25 14:40 01/25/25 14:40 Laboratory Results 01/25/25 01/25/25 01/25/25 Range/Units 14:40 14:40 14:06 WBC 10.8 H (3.98-10.04) x10^3/uL RBC 4.69 (3.93-5.22) x10^6/uL Hgb 13.7 (11.2-15.7) g/dL Hct 42.7 (34.1-44.9) % MCV 91.0 (79.4-94.8) fL MCH 29.2 (25.6-32.2) pg MCHC 32.1 L (32.2-35.5) g/dL RDW 14.8 H (11.7-14.4) % Plt Count 353 (182-369) x10^3/uL MPV 8.8 L (9.4-12.3) fL Gran % 71.2 H (34.0-71.1) % Immature Gran % (Auto) 0.7 H (0.001-0.429) % Nucleat RBC Rel Count 0.0 (0.00-0.2) % Eos # (Auto) 0.15 (0.04-0.36) x10^3/uL Immature Gran # (Auto) 0.08 H (0.001-0.031) x10^3u/L Absolute Lymphs (auto) 1.91 (1.18-3.74) x10^3/uL Absolute Monos (auto) 0.93 H (0.24-0.86) x10^3/uL Absolute Nucleated RBC 0.00 (0.00-0.012) x10^3u/L Lymphocytes % 17.7 L (19.3-51.7) % Monocytes % 8.6 (4.7-12.5) % Eosinophils % 1.4 (0.7-5.8) % Basophils % 0.4 (0.1-1.2) % Absolute Granulocytes 7.69 H (1.56-6.13) x10^3/uL Basophils # 0.04 (0.01-0.08) x10^3/uL Sodium 134 L (135-145) mmol/L Potassium 4.3 (3.5-5.1) mmol/L Chloride 108 H (98-107) mmol/L Carbon Dioxide 20 L (22-30) mmol/L Anion Gap 10.7 (5-15) MEQ/L BUN 26 H (7-17) mg/dL Creatinine 1.13 H (0.52-1.04) mg/dL Estimated GFR 52.3 ML/MIN Glucose 96 (74-106) mg/dL Calcium 9.8 (8.4-10.2) mg/dL Urine Color Yellow (Yellow) Urine Appearance Clear (Clear) Urine pH 5.0 (4.6-8.0) Ur Specific [place] >=1.030 A (1.005-1.030) Urine Protein Trace A (Negative) Urine Glucose (UA) Negative (Negative) mg/dL Urine Ketones Negative (Negative) Urine Blood Large A (Negative) Urine Nitrite Negative (Negative) Urine Bilirubin Negative (Negative) Urine Urobilinogen 0.2 (0.2) mg/dL Ur Leukocyte Esterase Negative (Negative) U Hyaline Cast (Auto) NONE SEEN (0-2) /LPF Urine Microscopic RBC >100 A (0-5) /HPF Urine Microscopic WBC 0-2 (0-5) /HPF Ur Epithelial Cells Few (None Seen) /HPF Urine Bacteria Rare A (None Seen) /HPF Urine Yeast (Budding) Few A (None Seen) /HPF Urine Culture Reflexed YES (NO) - Progress Progress Note: 01/25/25 15:[address] findings, pain control, awaiting urinalysis - Departure Departure Disposition: Home Clinical Impression: Kidney stone on left side Condition: Stable Critical Care Time: No Referrals: BEATRIZ MERCADO MD [NON-STAFF PHY W/O PRIVILEGES, UROLOGY] - Follow up/PCP as directed Instructions: Kidney Stones (DC) Additional Instructions: call Urology if you have not passed stone in a week, If you have severe pain return to emergency, Ibuprofen 2-3 tabs 3 times a day Prescriptions: Hydrocodone/APAP 5/325 [[place] 5/325 mg] 1 each PO Q6H PRN PRN #10 tablet MDD 4 PRN Reason: Pain Tamsulosin HCl 0.4 mg [Flomax 0.4 MG] 0.4 mg PO DAILY #7 cap
[2025-01-25 16:24] VITALS: BP 173/91; PULSE 70; RESP 18
== END 2025-01-25 16:36 | disposition home or self-care (01) ==
LOC: ED 13:30
DX: N20.0 Calculus of kidney (principal); R10.A2 Flank pain, left side; Z79.891 Long term (current) use of opiate analgesic; Z79.899 Other long term (current) drug therapy; Z72.0 Tobacco use